=== PATIENT | male | born 1955 ===

== ENCOUNTER → 2024-04-12 09:48 | Outpatient (REF) | payer OTHER, SELFPAY | LOC: RCS 09:48 | PROVIDERS: ATTENDING PHYSICIAN Thoracic Surgery (Cardiothoracic Vascular Surgery); FAMILY PHYSICIAN Internal Medicine | DX: Q25.43 Congenital aneurysm of aorta (principal) | CPT/HCPCS: 71275; 74174; 93306; Q9967 ==